=== PATIENT | female | born 1990 | race Caucasian/White ===

== ENCOUNTER 2017-10-19 15:09 | Emergency (ER) | payer OTHER ==
--- NOTE | 2017-10-19 16:11 | ED Physician Documentation ---
PD HPI CHEST PAIN - Stated complaint Stated Complaint: SOA/LT CHEST PX - Chief complaint Chief Complaint: Cardiac - History obtained from History obtained from: Patient - History of Present Illness Timing - onset: Other (This is a 25-week woman who since yesterday has had increasing sharp left-sided chest pain only with deep breathing or exertion. She also has coughing which makes it worse. She is short of breath with exertion or after a coughing fit. With shallow deep breathing she has no pain or shortness of breath. She denies pedal edema or calf pain. No recent travel or history of PE. No fevers. Her cough is nonproductive and she has no other URI symptoms.) Review of Systems Constitutional: denies: Fever, Chills Cardiac: denies: Pedal edema, Calf pain Respiratory: denies: Hemoptysis, Wheezing GI: denies: Abdominal Pain, Nausea, Vomiting PD PAST MEDICAL HISTORY - Past Medical History Past Medical History: No - Present Medications Home Medications: Ambulatory Orders Medication Instructions Recorded Confirmed Pnv No.122/Iron/Folic Acid 1 tab 10/19/17 [ Multi Tablet] - Allergies Allergies/Adverse Reactions: Allergies Allergy/AdvReac Type Severity Reaction Status Date / Time Penicillins Allergy Intermediate Rash Verified 10/19/17 15:23 - Social History Does the pt smoke?: No Smoking Status: Never smoker PD ED PE NORMAL - Vitals Vital signs reviewed: Yes - General General: Alert and oriented X 3, No acute distress - HEENT HEENT: PERRL, EOMI - Neck Neck: Supple, no meningeal sign, No bony TTP - Cardiac Cardiac: No murmur, Other (Modest tachycardia) - Respiratory Respiratory: No respiratory distress, Clear bilaterally - Abdomen Abdomen: Normal bowel sounds, Soft, Non tender - Extremities Extremities: No edema, No calf tenderness / cord - Neuro Neuro: Alert and oriented X 3, Normal speech - Psych Psych: Normal mood, Normal affect Results - Vitals Vitals: Vital Signs - 24 hr 10/19/17 15:16 Temperature 36.7 C Heart Rate 120 H Respiratory 16 Rate Blood Pressure 114/66 O2 Saturation 100 Oxygen O2 Source Room air - EKG (time done) 1500 Rate: Rate (enter#) (114) Rhythm: Sinus tachycardia [place]: Normal Intervals: Normal [place] QRS: Normal Ischemia: Non specific changes Computer interpretation: Agree with computer - Labs Labs: Laboratory Tests 10/19/17 10/19/17 10/19/17 16:20 16:20 16:20 WBC 10.4 RBC 4.39 Hgb 12.8 Hct 39.1 MCV 89.0 MCH 29.2 MCHC 32.9 RDW 13.5 Plt Count 206 MPV 9.0 Neut # (Auto) 8.0 H Lymph # (Auto) 1.6 [place] # (Auto) 0.8 Eos # (Auto) 0.0 Baso # (Auto) 0.0 Absolute Nucleated RBC 0.00 Nucleated RBC % 0.0 D-Dimer 219.6 Sodium 136 Potassium 3.2 L Chloride 102 Carbon Dioxide 24 Anion Gap 10.0 BUN 5 L Creatinine 0.4 Estimated GFR (MDRD) 193 Glucose 98 Calcium 8.9 Total Bilirubin 0.3 AST 19 ALT 11 Alkaline Phosphatase 59 Total Protein 7.6 Albumin 3.5 Globulin 4.1 Albumin/Globulin Ratio 0.9 L Lipase 23 - Rads (name of study) 2v chest Radiology: EMP read contemporaneously (normal) PD MEDICAL DECISION MAKING - ED course ED course: 27-year-old woman who is presents with 1 day of pleuritic chest pain and nonproductive cough. Worrisome diagnoses would include pneumonia or pulmonary embolism, however her chest x-ray, blood work and d-dimer are negative. - Sepsis Event Vital Signs: Vital Signs - 24 hr 10/19/17 15:16 Temperature 36.7 C Heart Rate 120 H Respiratory 16 Rate Blood Pressure 114/66 O2 Saturation 100 Oxygen O2 Source Room air Departure - Departure Disposition: 01 Home, Self Care Clinical Impression: Pleurisy Condition: Good Record reviewed to determine appropriate education?: Yes Instructions: ED Chest Pain NonCardiac Comments: Tylenol as needed for pain, return if worse or for new symptoms.
[2017-10-19 16:32] LABS: BASOPHILS % (AUTO) 0.1 %; EOSINOPHILS % (AUTO) 0.3 %; HGB - HEMOGLOBIN 12.8 g/dL (12.0-16.0); LYMPHOCYTES # (AUTO) 1.6 10^3/uL (1.5-3.5); LYMPHOCYTES % (AUTO) 15.5 %; MEAN CORPUSCULAR HEMOGLOBIN 29.2 pg (27.0-31.0); MEAN CORPUSCULAR HGB CONC 32.9 g/dL (32.0-36.0); MONOCYTES # (AUTO) 0.8 10^3/uL (0.0-1.0); MONOCYTES % (AUTO) 7.9 %; NEUTROPHILS % (AUTO) 76.2 %; PLT - PLATELET COUNT 206 10^3/uL (130-450); RED BLOOD COUNT 4.39 10^6/uL (4.20-5.40); RED CELL DISTRIBUTION WIDTH 13.5 % (12.0-15.0); WHITE BLOOD COUNT 10.4 x10^3/uL (4.8-10.8)
[2017-10-19 16:44] LABS: ALBUMIN 3.5 g/dL (3.2-5.5); ALBUMIN/GLOBULIN RATIO 0.9 (1.0-2.2); BILIRUBIN,TOTAL 0.3 mg/dL (0.2-1.0); CALCIUM 8.9 mg/dL (8.5-10.3); CREATININE 0.4 mg/dL (0.4-1.0); TOTAL PROTEIN 7.6 g/dL (6.7-8.2)
--- NOTE | 2017-10-19 16:47 | XRAY Report ---
Procedure Date: 10/19/2017 Accession Number: [id number] / [id number] Procedure: XR - Chest 2 View X-Ray CPT Code: 72213 FULL RESULT: EXAM: CHEST RADIOGRAPHY EXAM DATE: 10/19/2017 04:33 PM. CLINICAL HISTORY: Cough. Chest pain. COMPARISON: None. TECHNIQUE: 2 views. FINDINGS: Lungs/Pleura: No focal opacities evident. No pleural effusion. No pneumothorax. Normal volumes. Mediastinum: Heart and mediastinal contours are unremarkable. Other: Pectus deformity noted. IMPRESSION: Normal 2-view chest radiography. [facility]
[2017-10-19 17:11] VITALS: BP 102/68
== END 2017-10-19 17:13 | disposition home or self-care (01) ==
LOC: ED 15:09
DX: O99.89 Other specified diseases and conditions complicating pregnancy, childbirth and the puerperium (principal); R09.1 Pleurisy; Z3A.24 24 weeks gestation of pregnancy
CPT/HCPCS: 36415; 71046; 80053; 83690; 85025; 85379; 93005; 99283; 99284